=== PATIENT | female | born 1990 | race Caucasian/White ===

== ENCOUNTER → 2017-10-29 | Outpatient (CLI) | payer OTHER, MEDICAID ==
[~2017-10-29] MED LIST: PREN-127 PO
== END ==
LOC: LAB 11:37
PROVIDERS: ATTEND Student in an Organized Health Care Education/Training Program
DX: Z02.9 Encounter for administrative examinations, unspecified (principal)

== ENCOUNTER → 2017-10-29 | Outpatient (CLI) | payer OTHER, MEDICAID | LOC: LAB 11:40 | PROVIDERS: ATTEND Student in an Organized Health Care Education/Training Program | DX: Z34.90 Encounter for supervision of normal pregnancy, unspecified, unspecified trimester (principal) | CPT/HCPCS: 36415; 81511 ==

== ENCOUNTER → 2017-11-23 | Outpatient (CLI) | payer OTHER, MEDICAID ==
--- NOTE | 2017-11-24 08:40 | RADIOLOGY IMAGING REPORT ---
FACILITY: [facility] [place] PATIENT NAME: Deirdre Brown : 1990 MR: [id number] V: [id number] EXAM DATE: ORDERING PHYSICIAN: DONNA RAMIREZ TECHNOLOGIST: Location: [facility] Patient: Deirdre Brown : 1990 Visit/Account:[id number] Date of Sevice: 11/23/2017 [facility] OB ANATOMICAL SURVEY HISTORY: 27-year-old female being evaluated for size and dates. COMPARISON: None. TECHNIQUE: Transabdominal imaging was performed for assessment of the fetus and maternal pelvic s tructures. Transvaginal imaging was not performed. FINDINGS: Intrauterine gestations: One. presentation: Variable. heart rate: 136 bpm. Amniotic fluid volume: Normal; GILSON 17.4 cm; MVP 4.8 cm. Placenta: Posterior. Uterus: Gravid, otherwise unremarkable. Maternal adnexa/ovaries: Grossly unremarkable, ovaries not visualized.. Cervix: Grossly long and closed. Gestational Parameters: BPD: 4.7 cm; 20 weeks/ 1 days HC: 17.5 cm; 20 weeks/ 1 days AC: 15.1 cm; 1 weeks/ 3 days FL: 3.2 cm; 20 weeks/ 1 days Average ultrasound age (AUA): 20 weeks/ 2 days Estimated age based on LMP: 20 weeks/ 3 days Estimated weight (EFW): 337 grams +/- 49 grams, 32nd percentile Anatomic Survey: Intracranial structures, 4-chamber heart, stomach, kidneys, urinary bladder, spine, 3-vessel cord and cord insertion are unremarkable. Two upper and two lower extremities visualized. IMPRESSION: 1. Single live intrauterine gestation currently dating at 20 weeks 2 days by composite sonographic c riteria. This is concordant with patient's LMP. 2. No abnormalities seen. Report Dictated By: Jesu Silvestre MD at 11/24/2017 8:31 AM Report E-Signed By: Jesu Silvestre MD at 11/24/2017 8:37 AM WSN:[email or web address]
== END ==
LOC: RAD 09:49
PROVIDERS: ATTEND Student in an Organized Health Care Education/Training Program
DX: Z02.9 Encounter for administrative examinations, unspecified (principal)

== ENCOUNTER → 2018-01-06 | Outpatient (CLI) | payer OTHER, MEDICAID ==
[~2018-01-06] MED LIST changes: +DIPH0.5D12 IM; +RHO(150015 IM
[2018-01-06 16:24] LABS: PLATELET COUNT, AUTOMATED 364 K/uL (150-450)
== END ==
LOC: LAB 08:11
PROVIDERS: ATTEND Obstetrics & Gynecology
DX: Z34.92 Encounter for supervision of normal pregnancy, unspecified, second trimester (principal)
CPT/HCPCS: 36415; 82950; 85025

== ENCOUNTER → 2018-03-17 | Outpatient (CLI) | payer OTHER, MEDICAID ==
[~2018-03-17] MED LIST changes: +FLU180SY11 IM; +FLU60SYR36 IM
== END ==
LOC: LAB 09:39
PROVIDERS: ATTEND Student in an Organized Health Care Education/Training Program
DX: Z34.90 Encounter for supervision of normal pregnancy, unspecified, unspecified trimester (principal)
CPT/HCPCS: 87081

== ENCOUNTER → 2018-03-31 | Outpatient (CLI) | payer OTHER, MEDICAID | LOC: LAB 09:44 | PROVIDERS: ATTEND Student in an Organized Health Care Education/Training Program | DX: N89.8 Other specified noninflammatory disorders of vagina (principal) | CPT/HCPCS: 84112 ==

== ENCOUNTER 2018-04-09 08:58 | Inpatient (IN) | payer OTHER, MEDICAID ==
[~2018-04-09] VITALS: Ht 170.2 cm; Wt 110.2 kg
[2018-04-09] MEDS ORDERED: LR(*) 1000 ML BAG 1,000 ML IV PRN (23:54)
[2018-04-10 00:15] VITALS: BP 140/88; Ht 170.2 cm; Wt 110.2 kg
[2018-04-10] MEDS ORDERED: OXYTOCIN 30 UNIT/D5LR 500 ML 500 ML ONE (00:52)
[2018-04-10] MEDS ORDERED: FENTANYL/ROPIVACAINE 100 ML BAG EPI PRN (00:55)
[2018-04-10] MEDS ORDERED: EPIDURAL KEYS XX PRN (00:55)
[2018-04-10] MEDS ORDERED: BUPIVACAINE 0.5% INJ 30ML VIAL EPI PRN (00:55)
[2018-04-10] MEDS ORDERED: LIDO/EPI 2% MPF 1:200,000 20ML EPI PRN (00:55)
[2018-04-10] MEDS ORDERED: BUPIVACAINE 0.25% MPF INJ EPI PRN (00:55)
[2018-04-10] MEDS ORDERED: fentaNYL CITR 100 MCG/2 ML AMP IT PRN (00:55)
[2018-04-10] MEDS ORDERED: LIDOCAINE/PF 2% 200MG/10ML AMP 200 MG/10 ML AMPUL EPI PRN (00:55)
[2018-04-10] MEDS ORDERED: OXYTOCIN 30 UNIT/D5LR 500 ML 500 ML IV PRN (01:07)
[2018-04-10] MEDS ORDERED: FAMOTIDINE(*) 20MG/50ML PREMIX 50 ML IVPB PRN (01:07)
[2018-04-10] MEDS ORDERED: ceFAZolin(*) 2GM/D5W 50ML 50 ML IVPB PRN (01:07)
[2018-04-10] MEDS ORDERED: LIDOCAINE 1% LOCAL 300 MG/30ML INJ PRN (01:10)
[2018-04-10] MEDS ORDERED: fentaNYL CITR 100 MCG/2 ML AMP IVP PRN (01:10)
[2018-04-10] MEDS ORDERED: LIDOCAINE/SOD BICARB 8.4% SYR SC PRN (01:10)
[2018-04-10] MEDS ORDERED: METOCLOPRAMIDE 10 MG/2 ML SDV IVP PRN (01:10)
--- NOTE | 2018-04-10 01:33 | History & Physical ---
History of Present Illness : 1 Para or TPAL: 0 EDC per U/S: Apr 09, 2018 Estimated Gestational Age: 40 Chief Complaint Pt arrived to L&D with contractions every 4-5 minutes for the past 4 hours. +FM, no LOF or VB, denies Pre eclampsia symptoms. Reports contractions to be mild in nature and feeling like "period cramps." and mother at the bedside and appear very supportive. History Patient's Blood Type: A Negative Rubella Status: Immune Group B Strep Screen: Negative Obstetrical History: none Past Medical History: non contributory Allergies: Coded Allergies: No Known Drug Allergies (Unverified , 09/25/17) Social History: Denies alcohol, ilicit drugs, or smoking Family History: FH: cancer PGM MGM FH: diabetes mellitus PGF FH: thyroid condition Zeina thyroiditis MOTHER, Age:54 Med Rec Home Meds Reported Medications Vits W-Ca,Fe,Fa(<1MG) ( VITAMINS) 1 Each Tablet, 1 EACH PO DAILY, TAB 09/25/17 Review of Systems All Systems Reviewed/Normal: Yes, Except as Noted Exam General Exam General Apperance: Alert/Awake/No Acute Distress Neuro: No Gross deficits Eyes: Normal Extraocular Movement & Vison ENT: Normal Cardiovascular: Regular Rate and Rhythm Respiratory: No Respiratory Distress, Clear to Auscultation Abdomen: Gravid - Non-Tender : Normal Musculoskeletal: No Weakness/Pain Psychological: Alert & Oriented X3, Appropriate Mood & Affect Vaginal Discharge/Fluid?: Mucous Cervical Dialation: 6 Cervical Effacement (%): 90 Cervical Consistency: Soft Cervical Position: Anterior Station: +1 Presentation: Vertex Uterine Contractions(Q min): 5 Uterine Contraction Strength: Mild UC Resting Tone: Soft Fetus Feeling Movement?: Yes Estimated Weight(grams): 3500 Heart Tones: 135 Heart Tone Variabilty: Moderate FHT Accelerations: 15X15 FHT Decelerations: None FHT Category: I Medical Decision Making VTE Prophylasis: Adult Deep Vein Thrombosis/Pulmonary: No Pharmacological Contraindicati: Pt at Low Risk for VTE Mechanical Contraindications: Pt at Low Risk for VTE Assessment and Plan Hospital Day: 1 RECYCLE DRIVER Assessment: Stable RECYCLE DRIVER Plan: Routine Labor Care Problems: (1) Supervision of normal Status: Acute (2) Rh negative status during Assessment & Plan: Rhophylac given 01/06/18 and Plan for next dose after delivery (3) Normal labor Assessment & Plan: Assessment/Plan: MELODY is a 27 y.o. at 40w2d wks with an Estimated Date of Delivery: 04/09/18 dated by L and early US 1. Labor state: Approaching active Labor 2. well-being: Category I FHT: continuous monitoring for epidural 3. Maternal well-being: VSS, afebrile, mildly hypertensive (will recheck after epidural placement), intact membranes 4. PNL: GBS Neg Type/Rh A-, rubella immune 5. Pain Management: Epidural placement by Angelic Henderson CRNA at 01:30am 6. Feed: Breast 7. PPBCM: 8. c/b: -Obesity 9.Anticipate , re-evaluate in 2-3 hours or prn Problem Qualifiers (1) Supervision of normal : Normal : normal first (2) Rh negative status during : Trimester: third trimester Qualified Codes: O09.893 - Supervision of other high risk pregnancies, third trimester; Z67.91 - Unspecified blood type, rh negative IVAN FRYE CNM Apr 10, 2018 01:33
[2018-04-10 01:44] LABS: PLATELET COUNT, AUTOMATED 337 K/uL (150-450)
[2018-04-10] MEDS ORDERED: ONDANSETRON 4 MG/2 ML VIAL IVP PRN (01:50)
--- NOTE | 2018-04-10 02:42 | Labor Progress Note ---
Labor Subjective Progress Notes Subjective Pt is completly comfortable after epidural placement. Feeling some rectal pressure.+FM, denies headache, visual changes, RUQ and epigastric pain. and mother at bedside Feeling Movement?: Yes Labor Pain: Comfortable Eyes: No Visual Disturbances Labor Objective Cervical Dialation: 7 Cervical Effacement (%): 90 Cervical Consistency: Soft Cervical Position: Anterior Station: 0 Presentation: Vertex Uterine Contractions(Q min): 4 Uterine Contraction Strength: Moderate UC Resting Tone: Soft Fetus Estimated Weight(grams): 3500 Heart Tones: 130 Heart Tone Variabilty: Moderate FHT Accelerations: 15X15 FHT Decelerations: None FHT Category: I General Exam General Appearance: Alert/Awake/No Acute Distress ENT: Normal Neck: No Masses Abdomen: Gravid - Non-Tender : Normal Psychological: Alert & Oriented X3 Other Result Diagram: 04/10/18 0049 Assessment and Plan Problems: (1) Supervision of normal Status: Acute (2) Rh negative status during Assessment & Plan: Rhophylac given 01/06/18 and Plan for next dose after delivery (3) Normal labor Assessment & Plan: Assessment/Plan: MELODY is a 27 y.o. at 40w2d wks with an Estimated Date of Delivery: 04/09/18 dated by L and early US 1. Labor state: Active Labor with good cervical change. Encourage peanut ball and alternating sides to facilitate descent. 2. well-being: Category I FHT: continuous monitoring for epidural 3. Maternal well-being: VSS, afebrile, mild range BP (cuff readjusted and larger cuff placed), Pre E labs sent, (results pending), intact membranes. Encourage maternal rest 4. PNL: GBS Neg Type/Rh A-, rubella immune 5. Pain Management: comfortable with STERLING 6. Feed: Breast 7. PPBCM: 8. c/b: -Obesity 9.Anticipate , re-evaluate in 2-3 hours or prn Problem Qualifiers (1) Supervision of normal : Normal : normal first (2) Rh negative status during : Trimester: third trimester Qualified Codes: O09.893 - Supervision of other h igh risk pregnancies, third trimester; Z67.91 - Unspecified blood type, rh negative IVAN FRYE Apr 10, 2018 02:42
--- NOTE | 2018-04-10 03:08 | Anesthesia OB Pre-Anes Eval ---
History of Present Illness Anesthesia Start Date: Apr 10, 2018 Anesthesia Start Time: 01:20 OB Anesthesia Diagnosis: spontaneous labor Complications: None known EDC: Apr 09, 2018 : 1 Para: 0 Pain Ratin Heart Tones: WNL Result Diagram: 04/10/18 0049 Height (Inches): 5.7 Weight (Pounds): 243 Past Medical History Medical History: obesity Surgical History: cholecystectomy Previous Anesthesia: general Attended Childbirth Classes?: No Hx Anesthesia Reactions: No Hx Family Anesthesia Reaction: No Home Meds Reported Medications Vits W-Ca,Fe,Fa(<1MG) ( VITAMINS) 1 Each Tablet, 1 EACH PO DAILY, TAB 09/25/17 Allergies: Coded Allergies: No Known Drug Allergies (Unverified , 09/25/17) Anesthesia OB ROS Neurological: No migraines/headaches, No seizures, No neuropathy Eyes ROS: contacts in, other (wearing glasses currently) ENT: Denies Tooth caps, Denies Loose teeth, Denies Chipped teeth, Denies Dentures, Denies Bridges, Denies Retainers, Denies Veneers, Denies Implants, Denies Tongue ring, Denies Other Pulmonary: No asthma, No smoker (pks/day/yrs); other Airway Class: lll Cardiovascular ROS: No edema, No arrhythmia GI ROS: clear liquids Last Solids Date: Apr 09, 2018 Last Solids Time: 23:00 ROS: No Herpes, No STD(s), No Liver Disease, No Renal Disease Endocrine ROS: No diabetes, No gestational diabetes, No thyroid disorder Musculoskeletal ROS: No low back pain, No low back injury, No scoliosis ASA Classification: 3 Assessment and Plan Anesthesia Plan: CSE Assessment Past Medical, Surgical, Family and Obstetric Histories reviewed. Please see ACOG chart. Epidural anesthesia risks, complications and benefits explained to patient's satisfaction for labor and vaginal delivery and/or section. General anesthesia risks and benefits explained to patient's satisfaction. Questions invited, none asked. WENDY MCFARLAND CRNA Apr 10, 2018 03:08
--- NOTE | 2018-04-10 03:15 | Procedure Note ---
Anesthetic Placement Note Anesthesia Plan: CSE Permit for Anesthesia Signed: Yes Anesthesia Technique: Patient Sitting Anesthesia Prep: Chlorhexidine Interspace: L 3-4 Local Anesthetic: 1% Lidocaine, 25 Gauge Needle Amount Local - cc's: 2 Anesthesia Needle: 17g Touhy/Schliff Anesthesia Attempts: 1 Loss of Resistance: Air Depth of PINA (cm): 6 Epidural Needle Placement: No CSF, No Blood, No Parasthesia Intrathecal Needle: 27 Gauge Pencan Cerebral Spinal Fluid: Yes, Clear Catheter Insertion (cm): 8 Catheter Type: Naidu - Spring Wound Epidural Dressing: Tegaderm, Tape, Adhesive Holton Anesthesia Tray: Lot Number ([id number]), Expiration Date (2019-02-07), Reference Number ([id number]) Anesthesia Medications: Intrathecal Dose: mcg Fentanyl (15), mg Marcaine MPF (1.75), Time (0158) Epidural Test Dose: 1.5 Lido/Epi (1:200,000), Dose - mL (2), Time (0223), Negative Epidural Loading Dose: 0.2% Ropivicaine, With Fentanyl 2mcg/ml, Dose - ml (5), Time (0223) Epidural Infusion: 0.2% Ropivicaine, With Fentanyl 2mcg/ml, Start Time: (0224) Epidural Pump Setting: Bolus Dose - mL (5), Lockout - Minutes (20), Maintenance Rate - mL/hr (6), Maximum per Hour - mL (21) Complications: None Comment: IV started with #18g in left hand, using lidocaine local. Excellent blood return and blood sent to lab. Pt. then up to bathroom to void while IV infuses. After 500 ml infused, CSE placed with no problems noted. Pt. became comfortable within 5-7 minutes. No itching noted. Pt. not feeling contractions. Encouraged to sleep. WENDY MCFARLAND CRNA Apr 10, 2018 03:15
--- NOTE | 2018-04-10 03:19 | Anesthesia Progress Note ---
Progress/Maintenance Anesthesia Note Date: Apr 10, 2018 Anesthesia Note Time: 03:00 Pain Intensity: 1 Pump: On Pump Rate (ML/HR): 6 Sensory Level: T-12 Motor Level: Bending Knees-Bilateral Dilatation: 7 Position: Left, Tilt Assessment and Plan Anesthesia Plan: CSE Assessment Remains comfortable. Feels "pressure" with contractions. Attempting to sleep. WENDY MCFARLAND CRNA Apr 10, 2018 03:19
--- NOTE | 2018-04-10 04:32 | Labor Progress Note ---
Labor Subjective Progress Notes Subjective Pt has been resting on her left side with the peanut ball and alternating with the right side. Feeling rectal pressure with contractions, but not constant. Denies any pain. Has been able to rest some. Feeling Movement?: Yes Labor Pain: Comfortable Eyes: No Visual Disturbances Labor Objective Vital Signs Vital Signs Date Time Temp Pulse Resp B/P (MAP) Pulse Ox O2 Delivery O2 Flow Rate FiO2 04/10/18 00:15 98.1 101 18 140/88 (105) 96 Room Air Vaginal Discharge/Fluid?: Bloody Show, Clear Fluid (SROM), Moderate Amount Cervical Dialation: 9.5 Cervical Effacement (%): 90 Cervical Consistency: Soft Cervical Position: Anterior Station: +1 Presentation: Vertex Uterine Contractions(Q min): 2.5 Uterine Contraction Strength: Moderate UC Resting Tone: Soft Fetus Estimated Weight(grams): 3500 Heart Tones: 135 Heart Tone Variabilty: Absent, Minimal FHT Accelerations: Present (with scalp stimulation) FHT Decelerations: Variable FHT Category: II General Exam General Appearance: Alert/Awake/No Acute Distress ENT: Normal Abdomen: Gravid - Non-Tender : Normal Musculoskeletal: No Weakness/Pain Other Result Diagram: 04/10/189 04/10/1848 Assessment and Plan Hospital Day: 1 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 at 40w2d wks with an Estimated Date of Delivery: 04/09/18 dated by L and early US 1. Labor state: Active Labor with good cervical change. 2. well-being: Category II FHT: intermittent variables, minimal variability at times, FH acceleration with scalp stim when cervical check, overall reassuring strip. Continuous monitoring for epidural 3. Maternal well-being: VSS, afebrile, Pre E labs neg (P:C .2), and BP stabilized after BP cuff exchanged for larger cuff. Encourage upright laverne position. 4. PNL: GBS Neg Type/Rh A-, rubella immune 5. Pain Management: comfortable with STERLING, feeling rectal pressure 6. Feed: Breast 7. PPBCM: 8. c/b: -Obesity 9.Anticipate , re-evaluate in 30 mi or sooner Problem Qualifiers (1) Supervision of normal : Normal : normal first (2) Rh negative status during : Trimester: third trimester Qualified Codes: O09.893 - Supervision of other high risk pregnancies, third trimester; Z67.91 - Unspecified blood type, rh negative IVAN FRYE CNM Apr 10, 2018 04:32
[2018-04-10] MEDS ORDERED: ONDANSETRON 4 MG/2 ML VIAL IVP ONE (04:50)
--- NOTE | 2018-04-10 05:31 | Anesthesia Progress Note ---
Progress/Maintenance Anesthesia Note Date: Apr 10, 2018 Anesthesia Note Time: 05:25 Pain Intensity: 2 Pump: On Pump Rate (ML/HR): 6 Sensory Level: T-12 Motor Level: Bending Knees-Bilateral Dilatation: 10 Position: Semi-Fowlers Drug Bolus: 0.2% Ropivicaine, Fentanyl 2mcg/ml, Other (85 mcgs) Assessment and Plan Assessment Pt. is starting to push, but feeling more of contractions. Requests more medication. Fentenyl given per epidural as well as bolus per epidural pump. Pt. states she notices improvement within 2-3 contractions. WENDY MCFARLAND CRNA Apr 10, 2018 05:31
--- NOTE | 2018-04-10 06:55 | Anesthesia Progress Note ---
Progress/Maintenance Anesthesia Note Date: Apr 10, 2018 Anesthesia Note Time: 06:50 Pain Intensity: 2 Pump: On Pump Rate (ML/HR): 6 Sensory Level: T-12 Motor Level: Bending Knees-Bilateral Dilatation: 10 Position: Semi-Fowlers Drug Bolus: 0.5% Marcaine (4 ml) Assessment and Plan Assessment Marcaine 0.5% plain given 5+ contractions before delivery. Mom was able to push with good strength. Marcaine 0.5% repeated at 0630 for vaginal repair work. Empty syringe attached to epidural catheter. RN agrees to remove with pt's. ambulation. Patient instructed the first ambulation is to be with help of nursing staff. Instructed to preform deep knee bends at bedside before walking. Anesthesia Stop Day: Apr 10, 2018 Anesthesia Stop Time: 06:45 WENDY MCFARLAND CRNA Apr 10, 2018 06:55
[2018-04-10] MEDS ORDERED: ACETAMINOPHEN 325 MG TAB PO PRN (07:30)
[2018-04-10] MEDS ORDERED: LANOLIN OINT 7 GM TUBE TP PRN (07:30)
[2018-04-10] MEDS ORDERED: POLYETHYLENE GLYCOL 17 GM PKT PO PRN (07:30)
[2018-04-10] MEDS ORDERED: MAGNESIUM HYDROXIDE* 30ML UDCP PO PRN (07:30)
[2018-04-10] MEDS ORDERED: GLYCERIN/WITCH HAZEL LEAF 1 PK TOP PRN (07:30)
[2018-04-10] MEDS ORDERED: BENZOCAINE 20% 60 ML BTL TP PRN (07:30)
[2018-04-10] MEDS ORDERED: HYDROCORTISONE 2.5% CR 30GM TB PR PRN (07:30)
[2018-04-10] MEDS ORDERED: HYDROmorphone HCL 2 MG TAB PO PRN (07:30)
--- NOTE | 2018-04-10 08:08 | OPERATIVE REPORT 1 ---
EVENT DATE: April 10, 2018 SURGEON: Princess Go MD ANESTHESIA: Epidural by Angelic Caldwell CRNA PREOPERATIVE DIAGNOSIS Suspected third degree obstetrical laceration. POSTOPERATIVE DIAGNOSIS 3A obstetrical laceration. PROCEDURE PERFORMED Repair of 3A obstetrical laceration. INDICATIONS FOR PROCEDURE This patient is a 27-year-old G1, P1 who delivered spontaneously at 0635 hours of a male infant with Rufina Blanca CNM. After delivery, examination of the perineum revealed concern for a third degree laceration. I was, therefore, consulted to evaluate. Upon examination, a 3A laceration was noted. DESCRIPTION OF PROCEDURE Upon evaluation, the laceration was cleansed with Betadine and further evaluated. There was a vaginal laceration that extended approximately 2 cm into the vagina and approximately 2 cm deep into the vaginal tissue. The external anal sphincter was noted to have the most external aspect of the capsule lacerated. This did not extend greater than 50% into the sphincter itself. Therefore, the was diagnosed with a 3A obstetrical laceration. The sphincter as grasped on either side with Allis clamps and reapproximated with direct alignment using a 2-0 Vicryl. A [id number] suture was then utilized to reapproximate the deep vaginal tissue. A 3-0 Vicryl was then utilized in a continuous fashion to reapproximate the vaginal tissue and external perineal skin. Once this was completed, hemostasis was assured. The patient tolerated this procedure well and recovered in Labor and Delivery. [facility]
--- NOTE | 2018-04-10 08:15 | OB Delivery Note ---
Delivery Note Vaginal Delivery Type: Spont. Vaginal Delivery Delivery Date: Apr 10, 2018 Delivery Time: 06:35 Estimated Gestational Age(wks): 40w2d Delivery Anesthesia: Epidural Sex: Male Weight (gms): 3180 Apgars: 1 Minute, 5 Minute Repair Needed: Laceration, 3rd Degree Delivery Complications: Other (tight body cord and wrapped around right fooot) Notes: The patient was noted to be complete at 0512. Coached pushing with excellent maternal effort for a little over an hour. vertex delivery of a live male at 0635 under continuous lumbar epidural, weighing 3180 gms with APGARS 7/9, terminal mec noted at delivery. The head delivered spontaneously in the OA and restituted to SHANNAN, with body cord and wrapped around foot. The anterior shoulder was delivered atraumatically and the posterior shoulder followed. Body delivered easily through summersault. Face was wiped with nose and bulb suction and then placed on the maternal abdomen with skin to skin. The was dried and stimulated and note to be slow to respond, so cord was clamped X 2 by CNM and cut by patient's spouse. Peds was notified. Placenta delivered spontaneously at 0639, intact with a 3 vessel cord. 30 units of Pitocin was placed in 500cc IV to firm the uterus and started after placenta delivery. Perineum and vaginal vault was inspected and found to be to have a possible 3rd deg perineal laceration. Dr Go called for consult and a 3A perineal laceration was confirmed. Repair was done by Dr. Go and pt lottie procedure well. EBL was 200, fundus firm with minimal bleeding. Recovering in labor and delivery well with . Moriah Blanca CNM was present throughout entire delivery as well as Lona Burdick CNM. Mother stable. 35 min after delivery Baby noted to have irregular respirations so was taken to warmer with nurse and SWITCH HOUSE OPERATOR present. PEDS notified to come to assess baby. See PEDS note. [employer] in Attendence: IVAN Gilman CNM Apr 10, 2018 08:15
[2018-04-10] MEDS: DOCUSATE CALCIUM 240 MG CAP PO SCH ×2 (08:23→22:05)
[2018-04-10] MEDS: IBUPROFEN 800 MG TAB PO SCH ×2 (08:23→16:40)
[2018-04-10] MEDS ORDERED: FLUSH 10 ML SYR IV SCH (09:00)
[2018-04-10 11:30] VITALS: BP 123/64
[2018-04-10] MEDS ORDERED: LIDOCAINE 1% LOCAL 300 MG/30ML 30 ML ONE (12:29)
[2018-04-10] MEDS: APAP/HYDROCODONE 325/5 TAB PO PRN ×2 (13:33→22:05)
[2018-04-10 14:47] VITALS: BP 128/55
[2018-04-10 20:14] VITALS: BP 119/61
[2018-04-10 22:30] VITALS: BP 117/60
[2018-04-11] MEDS: IBUPROFEN 800 MG TAB PO SCH ×3 (00:58→17:34)
[2018-04-11 02:50] VITALS: BP 123/68
--- NOTE | 2018-04-11 07:46 | OB/GYN Progress Note ---
OB Subjective Progress Notes Subjective Doing well. Pain controlled with oral medications. Tolerating regular diet. Ambulating. Voiding. Normal lochia. No preeclampsia symptoms. Baby is doing better with Oxygen by NC. OB Objective Physical Exam Vital Signs Date Time Temp Pulse Resp B/P (MAP) Pulse Ox O2 Delivery O2 Flow Rate FiO2 04/11/18 02:50 98.2 78 16 123/68 (86) 94 Room Air Intake and Output 04/11/18 06:58 Intake Total 1350 ml Output Total 1500 ml Balance -150 ml Intake Oral 0 ml IV Total 1350 ml Output Urine Total 1500 ml # Voids 2 General Appearance: Alert/Awake/No Acute Distress Neurological: No Gross deficits Eyes: Normal Extraocular Movement & Vison ENT: Normal Neck: No Masses Respiratory: No Respiratory Distress, Clear to Auscultation Abdomen: Soft, Non-Tender, Non-Distended, Fundus Firm Musculoskeletal: No Weakness/Pain Extremities: No Cyanosis,Clubbing or Edema Integumentary: Skin Intact without Lesions or Rash Psychological: Alert & Oriented X3, Appropriate Mood & Affect Result Diagram: 04/10/184804/10/1848 Assessment and Plan Problems: (1) examination following vaginal delivery Assessment & Plan: PPD#1 s/p . She is doing well. Will consider discharge tomorrow if baby is improved. (2) Rh negative status during Assessment & Plan: Baby Rh negative. No rhophylac needed. Problem Qualifiers (1) Rh negative status during : Trimester: third trimester Qualified Codes: O09.893 - Supervision of other high risk pregnancies, third trimester; Z67.91 - Unspecified blood type, rh negative LUISA LANDIN MD Apr 11, 2018 07:46
[2018-04-11] MEDS: DOCUSATE CALCIUM 240 MG CAP PO SCH ×2 (08:54→21:32)
[2018-04-11 09:34] VITALS: BP 117/69
--- NOTE | 2018-04-11 11:33 | Anesthesia Post Eval Note ---
Anesthesia Post Eval Note Vital Signs Date Time Temp Pulse Resp B/P (MAP) Pulse Ox O2 Delivery O2 Flow Rate FiO2 04/11/18 09:34 97.6 18 117/69 (85) Room Air 04/11/18 02:50 78 94 Pt able to participate in Eval: Yes Cardiovascular Status: Satisfactory Respiratory Status: Satisfactory Pain Managment: Satisfactory PO Nausea/Vomiting: Satisfactory Temperature Management: Satisfactory Mental Status: Satisfactory, Alert, Oriented X3 Post-Op Hydration Status: Satisfactory, Tolerating PO Well, Voiding w/o Difficulty Anesthesia Type: CSE Anesthesia Tolerance: Tolerated procedure well without apparent anesthetic complications. LP site clear, no redness or edema. Denies headache or any residual paresthesia. Vital Signs Stable, Patient comfortable and condition stable. WENDY MCFARLAND CRNA Apr 11, 2018 11:33
[2018-04-11 16:12] VITALS: BP 131/63
--- NOTE | 2018-04-11 17:35 | OB/GYN Discharge Summary ---
Discharge Summary Reason for Hosp/Final Diag: (1) examination following vaginal delivery Hospital Course & Plan: PPD#2 s/p . She is doing well. No concerns. Will be dc'd today and board as her baby will stay for 24 hours. (2) Rh negative status during Hospital Course & Plan: Baby Rh negative. No rhophylac needed. (3) Normal labor Status: Resolved (4) Supervision of normal Status: Resolved Lates Vital Signs Vital Signs Date Time Temp Pulse Resp B/P (MAP) Pulse Ox O2 Delivery O2 Flow Rate FiO2 04/11/18 16:12 98.6 18 131/63 (85) 95 Room Air 04/11/18 02:50 78 Weight (Pounds): 243 Result Diagram: 04/10/184804/10/1848 Condition: Improved Discharge: Home Home Meds Active Scripts Hydrocodone Bit/Acetaminophen (NORCO 5-325 TABLET) 1 Each Tablet, 1-2 EACH PO Q6H PRN for pain, #15 TAB 0 Refills Prov:LUISA LANDIN MD 04/12/18 Reported Medications Vits W-Ca,Fe,Fa(<1MG) ( VITAMINS) 1 Each Tablet, 1 EACH PO DAILY, TAB 09/25/17 Follow up Referrals: [facility] - In Two Weeks @ [facility] with IVAN FRYE CNM Discharge Diet: As Tolerates Discharge Activity: As Tolerates, Pelvic Rest Special Instructions: You have a 3rd degree perineal laceration. Be gentle with wiping and use the peribottle when urinating. Sitz bathes twice a day can aide in healing. The sutures will fall out on thier own in a few weeks. Please follow strict pelvic rest for 6 weeks and use stool softners as needed so you don't have to strain when having a bowel movement. At 6 weeks I will have you consult with pelvic floor physical therpay to help with plevic floor strengthening. Problem Qualifiers (1) Rh negative status during : Trimester: third trimester Qualified Codes: O09.893 - Supervision of other high risk pregnancies, third trimester; Z67.91 - Unspecified blood type, rh negative (2) Supervision of normal : Normal : normal first IVAN FRYE CNM Apr 11, 2018 17:28
[2018-04-11 19:12] VITALS: BP 122/76
[2018-04-12 00:02] VITALS: BP 107/62
[2018-04-12] MEDS: IBUPROFEN 800 MG TAB PO SCH ×3 (01:57→17:38)
--- NOTE | 2018-04-12 08:42 | OB/GYN Progress Note ---
OB Subjective Progress Notes Subjective Doing well. Pain controlled with oral medications. Tolerating regular diet. Ambulating. Voiding. Normal lochia. No preeclampsia symptoms. Baby is doing better, on nasal cannula. Feeding well. OB Objective Physical Exam Vital Signs Date Time Temp Pulse Resp B/P (MAP) Pulse Ox O2 Delivery O2 Flow Rate FiO2 04/12/18 02:39 98.2 73 16 97 Room Air 04/12/18 00:02 107/62 (77) Intake and Output 04/12/18 06:58 Intake Total 220 ml Balance 220 ml Intake Oral 220 ml # Voids 1 General Appearance: Alert/Awake/No Acute Distress Neurological: No Gross deficits Eyes: Normal Extraocular Movement & Vison ENT: Normal Neck: No Masses Respiratory: No Respiratory Distress, Clear to Auscultation Abdomen: Soft, Non-Tender, Non-Distended, Fundus Firm Musculoskeletal: No Weakness/Pain Extremities: No Cyanosis,Clubbing or Edema Integumentary: Skin Intact without Lesions or Rash Psychological: Alert & Oriented X3, Appropriate Mood & Affect Result Diagram: 04/10/189 04/10/1848 Assessment and Plan Problems: (1) examination following vaginal delivery Assessment & Plan: PPD#2. Meeting milestones. Will plan discharge to home or rooming in status today. Discussed routine expectations. Questions answered. Follow up in clinic in 2-3wks for check. (2) Rh negative status during Assessment & Plan: Baby Rh negative. No rhophylac needed. Problem Qualifiers (1) Rh negative status during : Trimester: third trimester Qualified Codes: O09.893 - Supervision of other high risk pregnancies, third trimester; Z67.91 - Unspecified blood type, rh negative LUISA LANDIN MD Apr 12, 2018 08:41
[2018-04-12] MEDS ORDERED: HYDR-653 PO (08:43)
[2018-04-12] MEDS ORDERED: IBUP800T37 PO (08:43)
[2018-04-12 08:46] VITALS: BP 116/70
[2018-04-12] MEDS: DOCUSATE CALCIUM 240 MG CAP PO SCH ×2 (09:58→17:38)
[2018-04-12 15:53] VITALS: BP 118/83
== END 2018-04-12 19:00 | disposition home or self-care (01) | DRG 768 ==
LOC: OB 23:47
PROVIDERS: ADMIT Obstetrics & Gynecology; ATTEND Obstetrics & Gynecology
PROC: 10E0XZZ Delivery of Products of Conception, External Approach (ICD-10-PCS; principal; 2018-04-10)
PROC: 0DQR0ZZ Repair Anal Sphincter, Open Approach (ICD-10-PCS; 2018-04-10)
DX: O69.2XX0 Labor and delivery complicated by other cord entanglement, with compression, not applicable or unspecified (principal); Z37.0 Single live birth; O36.0130 Maternal care for anti-D [Rh] antibodies, third trimester, not applicable or unspecified; O70.21 Third degree perineal laceration during delivery, IIIa; O77.0 Labor and delivery complicated by meconium in amniotic fluid; O99.214 Obesity complicating childbirth; E66.9 Obesity, unspecified; Z3A.40 40 weeks gestation of pregnancy; Z68.38 Body mass index [BMI] 38.0-38.9, adult
CPT/HCPCS: 81001; 82040; 82247; 82310; 82374; 82435; 82565; 82570; 82947; 83615; 84075; 84132; 84155; 84156; 84295; 84450; 84460; 84520; 84550; 85025; 86850; 86900; 86901; 88307; J2001; J2405; J3010; S0020